=== PATIENT | male | born 2000 | race Hispanic/Latino ===

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

== ENCOUNTER 2022-12-12 21:08 | Emergency (ER) | payer BC, SELFPAY ==
[2022-12-12] MEDS ORDERED: Boostrix 0.5 ML (Tdap) VIAL (>/=7 yrs of age) ONE (21:44)
== END 2022-12-12 22:01 | disposition home or self-care (01) ==
LOC: ERS 21:08
DX: S51.852A Open bite of left forearm, initial encounter (principal); W50.3XXA Accidental bite by another person, initial encounter; Z23 Encounter for immunization
CPT/HCPCS: 90471; 90715

== ENCOUNTER 2023-01-22 02:54 | Emergency (ER) | payer SELFPAY ==
[2023-01-22] MEDS ORDERED: HYDROcodone/Acetaminophen 10/325 mg Tablet ONE (03:10)
[2023-01-22] MEDS ORDERED: Ketorolac Tromethamine 30 MG/ML VIAL ONE (03:10)
== END 2023-01-22 03:16 | disposition home or self-care (01) ==
LOC: ERS 02:54
DX: K08.89 Other specified disorders of teeth and supporting structures (principal)
CPT/HCPCS: 96372; 99282; J1885

== ENCOUNTER 2023-12-10 18:47 | Emergency (ER) | payer SELFPAY | END 2023-12-10 23:26 | disposition home or self-care (01) | LOC: ERS 18:47 | DX: J03.90 Acute tonsillitis, unspecified (principal); F17.210 Nicotine dependence, cigarettes, uncomplicated | CPT/HCPCS: 36415; 70491; 80053; 83605; 85025; 96374; 96375; J0295; J2930; J3490; Q9967 ==